=== PATIENT | female | born 1975 | race Caucasian/White ===

== ENCOUNTER 2021-11-18 10:55 | Outpatient (CLI) | payer OTHER, SELFPAY ==
[2021-11-18 11:19] LABS: Hematocrit 42.3 % (37.0-47.0); Mean Corpuscular HGB Conc 33.1 g/dl (32-36); Mean Corpuscular Hemoglobin 29.4 pg (26-34); Mean Corpuscular Volume 88.7 fl (80-100); Mean Platelet Volume 8.9 fl (7.4-10.4); Platelet Count Result 273 k/mm3 (150-375); Red Blood Count 4.77 M/mm3 (4.2-5.4); Red Cell Distribution Width 12.5 % (11.5-14.5); White Blood Count 7.5 K/mm3 (4.5-10.0)
[2021-11-18 11:28] LABS: Anion Gap 7 mmol/L (8-16); Blood Urea Nitrogen 13 mg/dL (7-17); Calcium 9.2 mg/dL (8.4-10.2); Carbon Dioxide 28 mmol/L (22-30); Chloride 105 mmol/L (98-107); Estimated Glomerular Filt Rate > 60; Glucose 99 mg/dL (65-110); Potassium 3.9 mmol/L (3.4-5.0); Sodium 140 mmol/L (137-145)
[2021-11-18 12:10] LABS: Hemoglobin A1C 6.9 % (<5.7)
== END 2021-11-18 10:56 | disposition home or self-care (01) ==
LOC: ANHLAB 11:02
PROVIDERS: Visit Provider Surgery Plastic and Reconstructive Surgery
DX: Z01.818 Encounter for other preprocedural examination (principal)
CPT/HCPCS: 36415; 80048; 83036; 85027

== ENCOUNTER 2021-12-04 12:54 | Outpatient (CLI) | payer OTHER, SELFPAY ==
--- NOTE | 2021-12-04 13:06 | ECG_ITS ---
Measurements Intervals [place] Rate: 73 P: 75 UT: 161 QRS: 69 QRSD: 97 T: 59 QT: 382 QTc: 422 Interpretive Statements SINUS RHYTHM NO PREVIOUS ECG AVAILABLE FOR COMPARISON Electronically Signed On 12-04-2021 14:27:21 CDT by Carmina Baum M.D.
== END 2021-12-04 12:55 | disposition home or self-care (01) ==
LOC: ANHSURGERY 12:59
PROVIDERS: Visit Provider Surgery Plastic and Reconstructive Surgery
DX: Z01.818 Encounter for other preprocedural examination (principal); I10 Essential (primary) hypertension
CPT/HCPCS: 93005

== ENCOUNTER 2021-12-06 00:10 | Day surgery (SDC) | payer OTHER, SELFPAY ==
--- NOTE | 2021-11-27 15:08 | SUR.PREOP ---
Addendum entered by Willow Ness RN 11/27/21 15:13: INSTRUCTED TO TAKE LANTUS USUAL EVENING BEFORE SURGERY, HOLD HUMALOG EVENING BEFORE SURGERY, HOLD ALL INSULIN MORNING OF SURGERY Original Note: Report to the Outpatient Waiting Room, entrance under the green pavilion located off [facility], at time 0600 on date 12/06/21. OR Time: 0730. - You and your visitor will be asked a series of questions to screen for COVID 19 for your protection. - A mask is required within the hospital. Preoperative COVID Testing Requirements: No COVID Test needed if: (proof is required; if not received patient will have Rapid Test prior to entry) - Patient has received COVID Vaccine at least 14 days prior to procedure date or - Patient has positive COVID test result within last 90 days of surgery date. COVID Test needed if above criteria is not met If not COVID vaccinated a COVID test must be conducted within 72 hours of surgery and patient is asked to isolate self from time of testing until procedure. You will go to the [facility] for your COVID testing. The [facility] site is located at the corner of [address] [facility]. You will only be called if COVID results are positive and your surgeon may reschedule your elective surgery date. Patients may have clear liquids (water, carbonated beverages, clear teas, apple juice) until 3 hours prior to surgery with a maximum of 20 ounces. - NO CLEAR LIQUIDS AFTER 0430 - No food from midnight until time of surgery - Infants may have breast milk until 4 hours before surgery, formula 6 hours prior to surgery. - Children will be allowed to drink immediately following surgery. If applicable, please bring a bottle or sippy cup to assist with drinking. Juice, water, soda, and popsicles are readily available. For infants on formula, please bring formula the day of surgery. Pacifiers are allowed. Take the following medications with a SIP of water the morning of surgery: HYDRALAZINE BRING YOUR INHALER WITH YOU THE DAY OF SURGERY Please no make-up, nail qatari, hairspray, perfume, deodorant, or body powder the day of surgery. No jewelry (including any body piercings) or valuables the day of surgery, leave them at home. Please take a shower or bath the night before, or the morning of, surgery with an antibacterial soap. Wear comfortable, loose fitting clothing. Children are encouraged to wear pajamas. - Jewelry must be removed prior to entering the operating room. Rings and piercings that are not removed may be cut off. - The hospital will not accept responsibility for valuables. - Please leave all valuables, including medications, at home the day of surgery. If you are going home after surgery, a licensed certified driver examiner must drive you home. - NO public transportation without another adult. - We recommend that an adult stay with you for 24 hours following discharge. - We also recommend that you do not drive, make important decision, drink alcoholic beverages, or take any drugs that were not prescribed by your health care provider for at least 24 hours after your discharge time. For Pediatric surgeries, we recommend two adults accompany the child home (only one inside the building at this time). One visitor will be allowed to accompany the patient into the hospital. Patients visitor will be instructed to remain with patient at all times or leave the building. We will allow the visitor to come back to the postoperative area when patient is ready. Follow any additional instructions given to you from your surgeon. Telephone instructions given to TAHMINA SPARKS and asked if any additional questions and then verbalized understanding. Patient advised to call surgeon office or pre surgery nurse liaison [phone] if any additional questions.
[2021-11-27 15:16] VITALS: BMI 24.1
[2021-12-06] VITALS (9 sets, daily range): BP systolic 134–165; BP diastolic 77–89; PULSE 77–98; RESP 12–18; TEMP 36.5–36.6; O2SAT 94–100
[2021-12-06 06:35] LABS: Urine Cotinine NEGATIVE
[2021-12-06] MEDS: LACTATED RINGERS 1,000 ML 30 ML IV CONT ×4 (06:42→14:37)
[2021-12-06 06:45] LABS: Glucose Point of Care 108 mg/dl (65-105)
--- NOTE | 2021-12-06 06:52 | WPDHPUPDATE1 ---
History and Physical Update Update Date/Time: 12/06/21 06:52 History and Physical has been reviewed, including an updated exam of the patient. There are NO changes in the patient's condition. Risks, benefits, and alternatives have been discussed and questions answered. Patient agrees to proceed with procedure.
[2021-12-06] MEDS: TRANEXAMIC ACID 1,000MG/ISO100 1,000 MG/100 ML BAG 200 MG IVPB (07:00)
--- NOTE | 2021-12-06 07:21 | WPDANESEPPF ---
Anes - Initial Pre Proc Eval Procedure: Operation Date: 12/06/21 07:30 Proposed Procedures p Bilateral Breast Augmentation - Doyle Monique MD s Abdominoplasty with Liposuction - Doyle Monique MD Date/Time: 12/06/21 07:21 Surgeon: Doyle Monique MD Pre Op Diagnosis: micromastia, skin laxity, local adiposity Patient Data Age: 45 Gender: F Height: 1.71 m Weight: 71 kg Allergies Allergy/AdvReac Type Severity Reaction Status Date / Time No Known Allergies Allergy Verified 11/27/21 15:12 Home Medications Medication Instructions Recorded Confirmed Type albuterol sulfate 2 puff INHALATION PRN PRN 07/24/21 11/27/21 History insulin lispro [Humalog KwikPen See Rx Instructions .ROUTE .COMPLEX 07/24/21 History Insulin] ropinirole 2 mg tablet 2 mg PO HS 07/24/21 11/27/21 History hydralazine 50 mg PO BID 11/27/21 11/27/21 History insulin glargine [Lantus Solostar 40 unit SUBCUT BID 11/27/21 11/27/21 History U-100 Insulin] nebivolol 20 mg PO HS 11/27/21 11/27/21 History carisoprodol 350 mg tablet 350 mg PO TID PRN #21 tablet 12/02/21 Rx docusate sodium 100 mg capsule 100 mg PO DAILY #14 cap 12/02/21 Rx ondansetron HCl 4 mg tablet 4 mg PO Q8H #21 tablet 12/02/21 Rx oxycodone-acetaminophen 5 mg-325 1 tablet PO Q6H PRN #30 tablet 12/02/21 Rx mg tablet Laboratory Tests 12/06/21 12/06/21 06:22 06:39 POC Capillary Glucose 108 mg/dl H mg/dl (65-105) Cotinine Negative Patient hx anesthesia problems: none Family hx anesthesia problems: none Results Review: All pre-operative results and documents have been reviewed as part of the pre-operative evaluation. [facility] Past Medical History Medical History Diabetes High blood pressure Nicotine use Surgical History Surgical History Hx of appendectomy Hx of hysterectomy Hx of rotator cuff surgery Family History Family History Other Heart disease Social History Social History Smoking packs per day: 0.75 Smoking cigarettes per day: 15.0 Years smoked: 22 Smoking pack-years: 16.50 Smoking status: Former smoker Tobacco type: cigarettes Smoking end date: 09/06/21 Substance use: former Substance use type: former substance user and marijuana Last use: 10/2021 Living arrangements: with family Spiritual care concerns: No Anes - Eval Final PreProcedure Day of Procedure 12/06/21 07:21 Patient weight: normal Heart: regular rate and rhythm Lungs: decreased breath sounds Airway: Mallampati scale class II Neurological: alert and oriented Last oral intake: >/= 8 hours ASA classification: III Emergent: no Anesthetic plan: proceed Anesthesia type and monitoring: general ETT and standard monitoring Results Review: All pre-operative results and documents have been reviewed as part of the pre-operative evaluation. Informed Consent: The patient's anesthetic plan and its attendant risks and benefits were discussed with the patient/family/POA. Questions were solicited and answers provided to the satisfaction of the patient/family/POA.
[2021-12-06] MEDS: ceFAZolin 2 GM/D5W 50 ML 2 GM/50 ML BAG IVPB (07:27)
[2021-12-06] MEDS: SCOPOLAMINE 1.5 MG PATCH TRANSDERM (07:30)
[2021-12-06] MEDS: BUPIVACAINE HCL 0.25% PF 30 ML VIAL INFILTRATE ×2 (07:44)
[2021-12-06] MEDS: NACL 0.9% IRRIG POUR BOTTLE 900 ML, GENTAMICIN SULFATE INJ 160 MG, ceFAZolin 2 GM, POVI... IRRIGATION (08:10)
[2021-12-06] MEDS: LACTATED RINGERS IRRIG 1,000 ML, LIDOCAINE HCL 1% LOCAL INJ 50 ML, EPINEPHrine HCL INJ ... INFILTRATE ×2 (09:00→09:30)
[2021-12-06 10:02] LABS: Glucose Point of Care 277 mg/dl (65-105)
[2021-12-06] MEDS: INSULIN HUMAN REGULAR (*BKC) 100 UNITS/ML 8 UNITS SUB-Q ×2 (10:14→12:27)
[2021-12-06] MEDS: ceFAZolin SODIUM 1 GM VIAL IV PUSH (11:25)
--- NOTE | 2021-12-06 11:25 | W.PM.PROC2 ---
Procedure Note - Detailed Date of Procedure 12/06/21 Pre-op Diagnosis micromastia, skin laxity, local adiposity Post-op Diagnosis Same Procedure Performed 1. Bilateral breast augmentation. 2. Progressive tension abdominoplasty 3. Suction lipectomy abdomen / flank Surgeon Doyle Monique MD Findings Bilateral Torie Herndon 410cc implants Right - REF# [id number] SN [id number] Left - REF# [id number] SN [id number] Lipoaspirate: 2200 cc Tissue removed: 2070 grams Description of Procedure She is here today for the above. Previously and again today the risks, benefits, alternatives were discussed in extensive detail. I wanted them to be very realistic about the risks involved as well as expectations. We discussed aftercare and what to monitor for. I was very upfront about the risks of wound breakdown leading to loss of skin, open wounds, and need for additional procedures with permanent abdominal deformity. We discussed DVT/PE risks and management. Made sure answered all of their questions to their satisfaction today and consent was obtained. Marked in the preoperative holding area with their verification. The patient was taken to the operating room placed supine on the operating table. Anesthesia was provided by anesthesiology. A surgical time-out was taken. We cleansed the skin and 1% lidocaine and 0.25% Marcaine with epinephrine was used anesthetize as a field block. She was prepped and draped in a standard sterile fashion with a 360 degree prep. Tegaderm nipple Mcgraw were placed. A 15 blade used to make an incision along the inframammary fold. Dissection was continued at 45 degree angle until the chest wall as identified. I incised the pectoralis major along its inferior border and completely released the inferior border leaving the medial border intact. I created a subpectoral pocket in the appropriate dimensions based on our preoperative planning for the implant. I then copiously irrigated with saline solution and verified a strict hemostasis. Next the use a triple antibiotic and Betadine containing solution to irrigate the pocket. I washed my gloves with the triple antibiotic and Betadine solution. We washed the implant immediately upon opening it with this solution and only opened it when we needed it. I used implant funnel and no-touch technique. The implant was introduced into the pocket using the funnel. Having verified positioning of the implant this was closed using 2-0 Vicryl followed by 3-0 Monocryl in a running subcuticular 4-0 Monocryl followed by tissue glue. Abdomen / flank was infiltrated with a tumescent solution through stab incisions. Once adequate time for hemostasis suction lipectomy completed in multiple plans and passes based on S.A.F.E. technique. Patient was turned to lateral decubitus positions during the procedure to obtimize outcome. A 10 blade was used to make the upper incision. I continued dissection down to the level of fascia. Elevated just what was necessary for repair of the diastasis. I then again flexed the bed to verify the upper skin flap would reach the lower markings without tension. Once verified I placed her supine once again and a 10 blade used to make the lower incision. I elevated up to level the umbilicus and left the umbilicus intact on a well-vascularized stalk. The intervening tissue was removed. A 2 mm blunt cannula with 0.5% bupivicaine was injected deep to the fascia bilaterally. I plicated the diastasis recti using 0 PDO stratafix barbed suture. This was in 2 separate layers using 2 separate sutures as well. I repaired around the umbilicus leaving plenty of room for well-vascularized stalk of the umbilicus with 2-0 PDS. I also repaired lateral to the rectus using two layers of 0 PDO stratafix. The patient was flexed and starting from superior to inferior began plication using 2-0 Vicryl to obliterate all space in a standard progressive tension fashion. At the umbilic
[2021-12-06] MEDS: fentaNYL CITRATE INJ (*CRX) 100 MCG/2 ML VIAL 25 MCG IV PUSH ×5 (11:49→12:55)
[2021-12-06 12:12] LABS: Glucose Point of Care 320 mg/dl (65-105)
--- NOTE | 2021-12-06 13:35 | PC.NURSE ---
This patient, Sofía Chu, was received from PACU via bed on 12/06/21 at 1358. Patient/family oriented to unit policies and routines
[2021-12-06] MEDS: carisoprodoL (*CRX) 350 MG TABLET PO ×2 (14:37→20:35)
[2021-12-06] MEDS: MORPHINE SULFATE (*CRX) 2 MG/ML INJ IV PUSH (17:22)
[2021-12-06] MEDS: ENOXAPARIN 40 MG/0.4 ML SYRINGE SUB-Q (17:23)
[2021-12-06] MEDS: hydrALAZINE HCL 50 MG TABLET PO (18:18)
[2021-12-06] MEDS: INSULIN GLARGINE (*BKC) 100 UNITS/ML 40 UNITS SUB-Q (18:52)
[2021-12-06] MEDS: NEBIVOLOL HCL 5 MG TABLET 20 MG PO (20:35)
[2021-12-06] MEDS: rOPINIRole HCL 1 MG TABLET 2 MG PO (20:35)
[2021-12-06] MEDS: DOCUSATE SODIUM 100 MG CAPSULE PO (20:35)
[2021-12-06] MEDS: oxyCODONE/ACETAMINOPHEN (*CRX) 5-325 MG TABLET PO (22:38)
[2021-12-06] MEDS: ONDANSETRON INJ 4 MG/2 ML VIAL IV PUSH (22:39)
[2021-12-07] MEDS: carisoprodoL (*CRX) 350 MG TABLET PO ×2 (02:35→08:09)
[2021-12-07 04:15] VITALS: BP 131/80; PULSE 79; RESP 16; TEMP 36.6
[2021-12-07] MEDS: oxyCODONE/ACETAMINOPHEN (*CRX) 5-325 MG TABLET PO ×2 (04:16→12:10)
[2021-12-07 08:00] VITALS: BP 102/62; PULSE 78; RESP 18; TEMP 36.4; O2SAT 99
[2021-12-07] MEDS: hydrALAZINE HCL 50 MG TABLET PO (08:09)
[2021-12-07] MEDS: DOCUSATE SODIUM 100 MG CAPSULE PO (08:09)
[2021-12-07] MEDS: diazePAM (*CRX) 5 MG TABLET PO (08:10)
[2021-12-07] MEDS: ENOXAPARIN 40 MG/0.4 ML SYRINGE SUB-Q (08:10)
[2021-12-07] MEDS: KETOROLAC 30 MG/ML VIAL (*BKC) IV PUSH (08:20)
--- NOTE | 2021-12-07 08:39 | WPDPN ---
Progress Note: A&P Assessment and Plan (1) Micromastia: Code(s): N64.82 - Hypoplasia of breast Status: Acute Assessment and Plan: She overall doing very well after bilateral breast augmentation, progressive tension abdominoplasty, suction lipectomy of abdomen and flank. Will discharge home once ambulating, tolerating p.o., pain controlled, improved blood sugar control. I will see her back. Today we had a lengthy discussion with her and her daughter loss about the care. Activity limitations. What monitor for. This was a lengthy open-ended conversation making sure they were well informed. Answered all of their questions. I will see her back. She understands what is a medical emergency and went to proceed to the ER/dial 911. Otherwise call with any questions or concerns. (2) Skin laxity: Code(s): L57.4 - Cutis laxa senilis Status: Acute (3) Localized adiposity: Code(s): E65 - Localized adiposity Status: Acute (4) Diabetes: Code(s): E11.9 - Type 2 diabetes mellitus without complications Status: Acute Assessment and Plan: She understands the importance of good glycemic control postoperatively. (5) Nicotine use: Code(s): Z72.0 - Tobacco use Status: Acute Assessment and Plan: She understands the critical importance of nicotine avoidance. We have provided case examples the risks of this. (6) High blood pressure: Code(s): I10 - Essential (primary) hypertension Status: Acute Subjective Date/time seen: 12/07/21 08:00 Overnight has done well. No fevers or chills. No nausea or vomiting. No shortness of breath. No chest pain. No calf tenderness. Moderate pain control. Of no blood sugars have slowly climbed over the evening. Review of Systems Review of Systems: All systems reviewed & are unremarkable except as noted in HPI and below Exam Narrative: Alert and oriented no obvious distress Bilateral breasts are soft. No signs of infection. No hematoma. No seroma. Abdomen soft. No signs of infection. No hematoma. No seroma. Good color and capillary refill No calf tenderness. Negative Homans. Objective Data Vital Signs Vital Signs: Vital Signs - 24 hr 12/06/21 11:41 12/06/21 11:58 12/06/21 12:13 Temperature 36.5 C Pulse Rate 92 92 77 Respiratory Rate 12 14 15 Blood Pressure 134/85 141/77 H 160/83 H Pulse Oximetry 100 94 100 12/06/21 12:27 12/06/21 12:40 12/06/21 12:50 Temperature Pulse Rate 80 80 78 Respiratory Rate 13 12 12 Blood Pressure 154/84 H 161/83 H 153/82 H Pulse Oximetry 100 100 100 12/06/21 13:10 12/06/21 13:35 12/06/21 17:40 Temperature 36.6 C 36.6 C Pulse Rate 98 94 86 Respiratory Rate 16 18 18 Blood Pressure 165/81 H 149/89 H 136/79 Pulse Oximetry 95 95 12/07/21 04:15 Temperature 36.6 C Pulse Rate 79 Respiratory Rate 16 Blood Pressure 131/80 Pulse Oximetry Intake/Output Intake/Output: Intake & Output 12/04/21 12/05/21 12/06/21 12/07/21 23:59 23:59 23:59 23:59 Intake Total 1100 500 Output Total 1130 1000 Balance -30 -500 Meds/Results Medications: Active Medications Generic Name Dose Route Start Last Admin Trade Name Freq PRN Reason Stop Dose Admin Albuterol 2 puff 12/06/21 13:46 Albuterol Sulfate (*Sp) Aerosol 1 Puff INHALATION PRN PRN Shortness Of Breath Carisoprodol 350 mg 12/06/21 13:35 12/07/21 08:09 Carisoprodol (*Crx) 350 Mg Tablet PO 350 mg Q6HR ALETA Administration Diazepam 5 mg 12/06/21 11:34 12/07/21 08:10 Diazepam (*Crx) 5 Mg Tablet PO 5 mg TID PRN Administration Anxiety Docusate Sodium 100 mg 12/06/21 21:00 12/07/21 08:09 Docusate Sodium 100 Mg Capsule PO 100 mg Q12HR ALETA Administration Enoxaparin Sodium 40 mg 12/06/21 18:00 12/07/21 08:10 Enoxaparin 40 Mg/0.4 Ml Syringe SUB-Q 40 mg DAILY ALETA Administration Hydralazine HCl 50 mg 12/06/21 17:00 12/07/21
--- NOTE | 2021-12-07 08:46 | P.DS_ITS ---
DS: Admitting Diagnosis Discharge Date 12/07/2021 Admitting Diagnosis 1. Micromastia 2. Skin Laxity 3. Localized adiposity 4. Diabetes 5. Nicotine use 6. HTN DS: Discharge Diagnosis Discharge Diagnosis (1) Micromastia: Code(s): N64.82 - Hypoplasia of breast Status: Acute (2) Skin laxity: Code(s): L57.4 - Cutis laxa senilis Status: Acute (3) Localized adiposity: Code(s): E65 - Localized adiposity Status: Acute (4) Diabetes: Code(s): E11.9 - Type 2 diabetes mellitus without complications Status: Acute (5) Nicotine use: Code(s): Z72.0 - Tobacco use Status: Acute (6) High blood pressure: Code(s): I10 - Essential (primary) hypertension Status: Acute DS: Summary Hospital Course Hospital Course: She underwent bilateral augmentation mammoplasty, progressive tension abdominoplasty, suction lipectomy of abdomen and flank. Postoperatively has done well. Pain moderate control. Her blood sugars have been elevated and will optimize prior to discharge. She understands the importance after discharge of good blood sugar control. Will plan for discharge home later today. I will see her back. Time Spent with Patient Time attestation: Total time spent providing and/or coordinating discharge services: Exam Narrative: Alert and oriented no obvious distress Bilateral breasts are soft. No signs of infection. No hematoma. No seroma. Abdomen soft. No signs of infection. No hematoma. No seroma. Good color and capillary refill No calf tenderness. Negative Homans. DS: Data Data Completed and Pending Labs on day of discharge: Labs from last 24 hours 12/06/21 12/06/21 12:10 09:58 POC Capillary Glucose 320 H 277 H Discharge Plan Discharge Patient Disposition: Home, Self-Care Discharge Instructions: POST OPERATIVE DISCHARGE INSTRUCTIONS NOLBERTO VALDEZ M.D. [facility] [address] [place] [address] * No driving for 24 hours after anesthesia and while you are taking pain medication. * Take all prescribed medication as directed * Diet as tolerated. * Begin gentle shoulder rolls and arm stretches 10 times per hour. * No lifting or activity that raises blood pressure for 48 hours. * Regular walking / ambulation. * No showering until directed to. * No pools or tubs for 2 weeks. * Call with any questions or concerns. * Slowly stand up straight at tolerated over the week. * No straining / lifting more than 20 pounds for 6 weeks * After 24 hours you may remove the dressings, bra, and binder. At this point my may shower. Do not take pain medication before showering as the combination of medication and heat may cause you to feel dizzy or pass out. Let soap and water run over your incisions. Do not scrub or directly wash your incision. Replace the surgical bra / binder and wear it 23 hours per day. * Remove the Scopolamine patch that was placed behind your ear in 72 hours or less. Wash your hands after touching. * No nicotine use - use can lead to wounds and skin loss (skin ) * Follow blood sugar closely If you have any questions or concerns, please call the office . If it is after hours you will be directe
--- NOTE | 2021-12-07 08:46 | PM.DS ---
DS: Admitting Diagnosis Discharge Date 12/07/2021 Admitting Diagnosis 1. Micromastia 2. Skin Laxity 3. Localized adiposity 4. Diabetes 5. Nicotine use 6. HTN DS: Discharge Diagnosis Discharge Diagnosis (1) Micromastia: Code(s): N64.82 - Hypoplasia of breast Status: Acute (2) Skin laxity: Code(s): L57.4 - Cutis laxa senilis Status: Acute (3) Localized adiposity: Code(s): E65 - Localized adiposity Status: Acute (4) Diabetes: Code(s): E11.9 - Type 2 diabetes mellitus without complications Status: Acute (5) Nicotine use: Code(s): Z72.0 - Tobacco use Status: Acute (6) High blood pressure: Code(s): I10 - Essential (primary) hypertension Status: Acute DS: Summary Hospital Course Hospital Course: She underwent bilateral augmentation mammoplasty, progressive tension abdominoplasty, suction lipectomy of abdomen and flank. Postoperatively has done well. Pain moderate control. Her blood sugars have been elevated and will optimize prior to discharge. She understands the importance after discharge of good blood sugar control. Will plan for discharge home later today. I will see her back. Time Spent with Patient Time attestation: Total time spent providing and/or coordinating discharge services: Exam Narrative: Alert and oriented no obvious distress Bilateral breasts are soft. No signs of infection. No hematoma. No seroma. Abdomen soft. No signs of infection. No hematoma. No seroma. Good color and capillary refill No calf tenderness. Negative Homans. DS: Data Data Completed and Pending Labs on day of discharge: Labs from last 24 hours 12/06/21 12/06/21 12:10 09:58 POC Capillary Glucose 320 H 277 H Discharge Plan Discharge Patient Disposition: Home, Self-Care Discharge Instructions: POST OPERATIVE DISCHARGE INSTRUCTIONS DOYLE MONIQUE M.D. [facility] [address] [place] [address] [address] driving for 24 hours after anesthesia and while you are taking pain medication. Take all prescribed medication as directed Diet as tolerated. Begin gentle shoulder rolls and arm stretches 10 times per hour. No lifting or activity that raises blood pressure for 48 hours. Regular walking / ambulation. No showering until directed to. No pools or tubs for 2 weeks. Call with any questions or concerns. Slowly stand up straight at tolerated over the week. No straining / lifting more than 20 pounds for 6 weeks After 24 hours you may remove the dressings, bra, and binder. At this point my may shower. Do not take pain medication before showering as the combination of medication and heat may cause you to feel dizzy or pass out. Let soap and water run over your incisions. Do not scrub or directly wash your incision. Replace the surgical bra / binder and wear it 23 hours per day. Remove the Scopolamine patch that was placed behind your ear in 72 hours or less. Wash your hands after touching. No nicotine use - use can lead to wounds and skin loss (skin ) Follow blood sugar closely If you have any questions or concerns, please call the office . If it is after hours you will be directed to the web production designer exchange. Shortness of breath, chest pain, or other medical emergency dial 911 / proceed to the Emergency Room. Stand Alone Forms: General Discharge Instructions Follow-up/Referrals: Doyle Monique MD [Physician] - 1 Week Discharge Medications: Continued ropinirole 2 mg tablet 2 mg PO HS RF: 0 albuterol sulfate 2 puff inhalation PRN PRN (Reason: Shortness Of Breath) RF: 0 insulin lispro [Humalog KwikPen Insulin] See Rx Instructions .ROUTE .COMPLEX RF: 0 hydralazine 50 mg tablet 50 mg PO BID RF: 0 Lantus Solostar U-100 Insulin 100 unit/mL (3 mL) insulin pen 40 unit SUBCUT BID RF: 0 nebivolol 2
[2021-12-07 09:15] LABS: Glucose Point of Care 299 mg/dl (65-105)
[2021-12-07] MEDS: INSULIN GLARGINE (*BKC) 100 UNITS/ML 40 UNITS SUB-Q (10:15)
[2021-12-07] MEDS: INSULIN ASPART (*BKC) 100 UNITS/ML SUB-Q ×2 (10:16→12:36)
--- NOTE | 2021-12-07 11:59 | PC.NURSE ---
Discharge instructions given to pt. per Dr. Monique at bedside this am. Re-enforced instructions at discharge. Pt. states she understands and will call Dr. Bashir with any questions or concerns. Very pleasant and cooperative. at side.
[2021-12-07 12:21] LABS: Glucose Point of Care 331 mg/dl (65-105)
--- NOTE | 2021-12-07 12:30 | PC.NURSE ---
Dr. Monique notified. Status report given including am. and afternoon blood sugar levels. Informed MD. on sliding scale and amounts of insulin given. Also, informed MD. that pt. stated that she does not watch her diet on most days and that her blood sugars are commonly in the 300- low 400's to which at that time she uses Humalog insulin to bring it down . Pt. denies any symptoms at this time. Desires to go home today. Dr. Monique comfortable with pt. discharge but instruct pt. to get in touch with detail technician so that diabetes can be managed through that MD. Instructed pt. on Dr. Monique order. Pt. verbalized understanding. No questions or concerns voiced.
== END 2021-12-07 12:50 | disposition home or self-care (01) ==
LOC: ANHSURGERY 08:00 → ANHOB2 13:32
PROVIDERS: Visit Provider Surgery Plastic and Reconstructive Surgery
PROC: (CPT 19325; principal; 2021-12-06 07:30)
PROC: (CPT 19325; 2021-12-06 07:30)
DX: Z41.1 Encounter for cosmetic surgery (principal); N64.82 Hypoplasia of breast; E65 Localized adiposity; L57.4 Cutis laxa senilis; Z87.891 Personal history of nicotine dependence; F12.90 Cannabis use, unspecified, uncomplicated; I10 Essential (primary) hypertension; E11.9 Type 2 diabetes mellitus without complications; Z79.51 Long term (current) use of inhaled steroids; Z79.4 Long term (current) use of insulin; Z79.899 Other long term (current) drug therapy
CPT/HCPCS: 19325; 15877; 15830; 15847; 80307; 82948; 99199; A9270; J0171; J0690; J1100; J1170; J1580; J1650; J1815; J1885; J2250; J2270; J2370; J2405; J2704; J2710; J3010; J7120